=== PATIENT | female | born 2000 | race Caucasian/White ===

== ENCOUNTER 2020-09-27 14:12 | Emergency (ER) | payer OTHER ==
[~2020-09-27] VITALS: Ht 160 cm; Wt 94.0 kg
--- NOTE | 2020-09-27 14:48 | NUR ---
Pt placed on cardiac montior, NSR to ST no ectopy pt reports feeling palpitations since getting covid vaccine. EKG done. Pt in NAD, RR equal and unlabored.
[2020-09-27 15:16] VITALS: BP 131/89
--- NOTE | 2020-09-27 15:17 | NUR ---
RECEIVED REPORT FROM RICK ROE. PT RESTING ON SHIRINROBINSON. EUGENIA. VSS. WARM BLANKET PROVIDED.
[2020-09-27 15:32] LABS: BASOPHILS % (AUTO) 1 % (0-1); EOSINOPHILS % (AUTO) 1 % (1-7); LYMPHOCYTES % (AUTO) 23 % (22-44); MEAN CORPUSCULAR HEMOGLOBIN 24.3 pg (27.0-34.8); MEAN CORPUSCULAR HGB CONC 32.3 g/dL (32.4-35.8); MEAN PLATELET VOLUME 7.9 fL (7.4-10.4); MONOCYTES % (AUTO) 5 % (2-9); NEUTROPHILS % (AUTO) 71 % (42-75); PLATELET COUNT 392 x10^3/uL (130-400); RED BLOOD COUNT 5.15 x10^6/uL (3.82-5.3)
[2020-09-27 15:42] LABS: ALBUMIN 3.8 g/dL (3.4-5.0); ANION GAP 4 mmol/L (5-15); CHLORIDE 108 mmol/L (98-107)
[2020-09-27 16:10] LABS: ANISOCYTOSIS 1+; MICROCYTOSIS 1+; OVALOCYTES 1+; STOMATOCYTES 1+
[2020-09-27 16:11] LABS: <PLATELET ESTIMATE> ADEQUATE; <PLT MORPHOLOGY> NORMAL PLT MORPH; HYPOCHROMIA 2+
--- NOTE | 2020-09-27 16:13 | NUR ---
FLOAT RN AT BEDSIDE TO DC PT FOR PRIMARY RNMELODY. PT AND FAMILY VERBALIZED UNDERSTANDING TO DC INSTRUCTIONS. AMBULATORY TO CHECKOUT C STEADY GAIT.
== END 2020-09-27 16:14 | disposition home or self-care (01) ==
LOC: ED 16:08
DX: R00.2 Palpitations (principal); R11.2 Nausea with vomiting, unspecified; R06.02 Shortness of breath; R07.9 Chest pain, unspecified; R94.31 Abnormal electrocardiogram [ECG] [EKG]
CPT/HCPCS: 36415; 71045; 80048; 82040; 85025; 93005; 99285